=== PATIENT | female | born 1990 | race Caucasian/White ===

== ENCOUNTER 2021-07-23 10:12 | Emergency (ER) | payer OTHER, SELFPAY ==
--- NOTE | ~2021-07-23 | CT_ITS ---
EXAMINATION: CT HEAD WITHOUT CONTRAST CLINICAL INFORMATION: Left-sided headache with tingling for one week. Age 30. COMPARISON: None TECHNIQUE: Contiguous axial imaging was performed from the skull base to vertex without intravenous administration of contrast. Additional 2-D coronal and sagittal reformatted images are generated on the CT workstation and uploaded to PACS. This CT examination was performed using dose optimization techniques as appropriate, variously including the following: *Automated exposure control *Adjustment of mA and/or kV according to patient size (this includes techniques or standardized protocols for targeted exams where dose is matched to indication/reason for exam; i.e. extremities or head) *Use of iterative reconstruction technique DLP: 570 mGy-cm FINDINGS: There is no intracranial hemorrhage, hematoma, or extra-axial fluid collection. The ventricles are normal in size. There is no hydrocephalus, edema, or mass effect. The mark-white matter differentiation appears well preserved . There is no visible acute territorial infarct or mass lesion. The calvarium appears intact. There is no pneumocephalus or orbital emphysema. The visualized sinuses and middle ears and mastoid air cells show no significant mucosal thickening. There are no air-fluid levels. CT/CT head/brain wo con IMPRESSION: Normal noncontrast CT head.
[2021-07-23 10:39] VITALS: BP 120/81; PULSE 89; RESP 18; TEMP 37.1; O2SAT 99; BMI 21.9
[2021-07-23 12:33] VITALS: BP 106/68; PULSE 72; RESP 18; TEMP 36.8; O2SAT 98
--- NOTE | 2021-07-23 12:50 | ED_ITS ---
HPI - Headache General Chief Complaint: Headache Stated Complaint: pain on l side of head numbness facial Time Seen by Provider: 07/23/21 12:05 Source: patient Mode of arrival: ambulatory Limitations: no limitations History of Present Illness HPI Narrative: 30-year-old female presents to ED for left-sided headache for 1 week. Patient states left-sided headache with facial tingling and numbness and sometimes pr essure behind left eye. Patient denies any eye redness, eye discharge, photophobia, neck stiffness, loss of vision, blurry vision, chest pain, neck pain, left upper extremity pain, or any recent trauma. Related Data Previous Rx's Medication Instructions Recorded [id number]-[id number]-dtuclmiu 1 cap PO Q4-6H PRN 5 Days #20 cap 07/23/21 50 mg-300 mg-40 mg capsule (Fioricet) naproxen 500 mg tablet 500 mg PO BID PRN 10 Days #20 tab 07/23/21 Allergies Allergy/AdvReac Type Severity Reaction Status Date / Time No Known Allergies Allergy Verified 07/23/21 12:11 Review of Systems Review of Systems: Headache Yes all other systems are reviewed and are negative [facility] Past Medical History Medical History (Updated 07/23/21 @ 14:11 by JOSE Chow) No known health problems Social History Social History Advance Directives: No Advance Directives Information Provided: Yes Patient : No Physical Exam Vital Signs: Vital Signs: Last Vital Signs Temp 98.2 F 07/23/21 12:33 Pulse 72 07/23/21 12:33 Resp 18 07/23/21 12:33 BP 106/68 07/23/21 12:33 Pulse Ox 98 07/23/21 12:33 BMI result Body Mass Index 21.9 Const: General: cooperative, healthy appearing, comfortable, no acute distress, well developed and alert Orientation/consciousness: oriented to person, oriented to place, oriented to time and patient oriented x3 HENMT: Other: negative for ecchymosis, hematoma, crepitus,abrasions, bleeding, racoon sign, temporal tenderness, or laceration Head: Yes normal to inspection, Yes No palpable skull fracture present, Yes normocephalic and No atraumatic Ears: hearing grossly normal bilaterally, external ears normal, TM's normal bilaterally, EAC's normal, mastoids normal and no periauricular adenopathy Face and sinus: Yes normal facial exam and Yes sinuses nontender Teeth and gingiva: dentition normal and gingiva normal Throat: Yes posterior oropharynx normal, Yes tonsils normal and Yes uvula midline Eyes: Other: both eyes normal. Both eyes negative for redness of the conjunctiva/ sclerra, eye discharge, photophobia, foreign body, corneal abrasions, nystagmus, subconjunctival hemorrhage, or hyphema. Negative for any eyelid swellings.. right eye tonometry pressure is 7 and left eye tonoemtry pressure is 10. visual acuity both eyes 20/20 Neck: Neck: Yes normal visual inspection, Yes full ROM, Yes no lymphadenopathy, Yes no meningeal signs, Yes trachea midline, No supple, No anterior neck swelling and No tender Chest: Chest palpation & inspection: normal inspection of the chest and normal palpation of entire chest wall Resp: Effort & Inspection: normal respiratory effort and able to speak in complete sentences Auscultation: clear to auscultation bilaterally Cardio: Jugular venous distension: no JVD Heart sounds: S1 normal heart sound present and S2 normal heart sound present GI: Inspection: Yes normal to inspection Palpation (GI): Soft to palpation, not firm, nontender, no guarding and not rigid : General: No CVA tenderness and Yes no CVA tenderness Back/Spine/Pelvis: Back: no CVA tenderness and No CVA tenderness Skin: General skin exam: no rashes or lesions noted, elasticity normal and turgor normal Neuro: General: oriented to person, oriented to place, oriented to time, patient oriented x3, gait normal, tone normal and no meningeal signs Extrem: General: Yes normal to inspection and Yes full ROM Psych: Appearance: grossly normal, well kempt and not disheveled Course Course Course Narrative: Most likely patient has migraine but will do a head CT scan. negative for any neuro deficits. NIH score 0. Reevaluation(s) Reevaluation #1: head CT scan came back normal. Most likely patient having migraines. patient will be discharged with Fioricet and naproxen. Patient informed to follow-up with Neurology. Patient given copy of head CT for follow-up. Time: 14:08 MDM - Headache MDM Narrative Medical decision making narrative: migraine headache Discharge Plan Discharge Clinical Impression: Migraine, Headache Patient Disposition: Home, Self-Care Instructions: Migraine Headache (ED), General Headache (ED) Additional Instructions: La nueva tomograf?a computarizada de la paresh result? normal. Lo m?s probable es que sufra de migra?as. Ser? dado de uday con analg?sicos. Regrese al servicio de urgencias si empeora el dolor de paresh, p?rdida de la visi?n, dolor ocular, dificultad para hablar, ca?da facial, par?lisis de las extremidades, dolor en la extremidad superior izquierda, dolor en el pecho, dificultad para respirar, mareos, n?useas/v?mitos intratables, debilidad o cualquier otro concerniente a los s?ntomas. Raul un seguimiento con meyers proveedor de atenci?n primaria para sherry evaluaci?n adicional y derivaci?n a Neurolog?a. Prescriptions: New hogcickjes-xjqmjzpcbityk-eipf [Fioricet] 50-300-40 mg capsule 1 cap PO Q4-6H PRN (Reason: pain) 5 Days Qty: 20 0RF naproxen 500 mg tablet 500 mg PO BID PRN (Reason: pain) 10 Days Qty: 20 0RF Stand Alone Forms: Work/School Release Interventions: ED Discharge Assessment Last Done: 07/23/21 14:24 Discharge Date/Time: 07/23/21 14:25 Print Language: Cuban
== END 2021-07-23 14:25 | disposition home or self-care (01) ==
PROVIDERS: Emergency Provider Emergency Medicine
DX: G43.909 Migraine, unspecified, not intractable, without status migrainosus (principal)
CPT/HCPCS: 70450; 99284